=== PATIENT | female | born 1955 | race African-American/Black ===

== ENCOUNTER 2018-05-14 20:39 | Emergency (ER) | payer MEDICAID ==
[~2018-05-14] VITALS: Ht 167.6 cm; Wt 77.0 kg
[2018-05-14] MEDS ORDERED: ALBUTEROL (0.083%) 2.5MG/3ML NEB HHN STA (22:34)
[2018-05-14] MEDS ORDERED: IPRATROPIUM BROMIDE (0.02%) 0.5MG/2.5ML NEB HHN STA (22:34)
[2018-05-14] MEDS ORDERED: ACETAMINOPHEN 500MG TABLET PO ONE (22:45)
[2018-05-15 02:14] LABS: CHLORIDE 108 mEq/L (98-107)
[2018-05-15 02:20] LABS: BASOPHILS % 0.4 % (0.0-2.0); EOSINOPHILS % 2.2 % (0.0-5.0); HEMATOCRIT. 36.5 % (36.0-48.0); HEMOGLOBIN. 11.9 g/dL (12.0-16.0); LYMPHOCYTES % 38.5 % (20.0-50.0); MEAN CORPUSCULAR HEMOGLOBIN 28.6 pg (28.0-32.0); MEAN PLATELET VOLUME 7.8 fl (7.4-10.4); MONOCYTES % 9.9 % (2.0-8.0); PLATELET 263 x1000/uL (130-400); RED BLOOD CELL COUNT 4.15 mill/uL (4.2-5.4); RED CELL DISTRIBUTION WIDTH 14.1 % (11.6-14.6)
[2018-05-15] MEDS ORDERED: IOHEXOL-300 100 ML BOTTLE ONE (04:51)
[2018-05-15] MEDS ORDERED: ACETAMINOPHEN WITH CODEINE 300/30MG TABLET PO ONE (06:15)
[2018-05-15 06:45] VITALS: BP 131/87
== END 2018-05-15 07:28 | disposition home or self-care (01) ==
LOC: ER 22:08
DX: I71.9 Aortic aneurysm of unspecified site, without rupture (principal); I27.20 Pulmonary hypertension, unspecified; J45.909 Unspecified asthma, uncomplicated; F17.200 Nicotine dependence, unspecified, uncomplicated; R05 Cough; Z88.6 Allergy status to analgesic agent
CPT/HCPCS: 36415; 71045; 71260; 80053; 85025; 94640; 99285; J7611; Q9967; Z7610; 94002

== ENCOUNTER 2022-04-26 00:04 | Emergency (ER) | payer OTHER ==
[~2022-04-26] VITALS: Ht 167.6 cm; Wt 100.0 kg
[2022-04-26] MEDS ORDERED: HYDROCODONE/ACETAMINOPHEN 10/325MG TABLET PO ONE (00:30)
[2022-04-26 03:08] VITALS: BP 110/68
== END 2022-04-26 03:09 | disposition home or self-care (01) ==
LOC: ER 00:04
DX: M79.604 Pain in right leg (principal); Z76.0 Encounter for issue of repeat prescription; J45.909 Unspecified asthma, uncomplicated; Z88.6 Allergy status to analgesic agent
CPT/HCPCS: 99283

== ENCOUNTER 2025-05-24 11:39 | Inpatient (IN) | payer BC, MEDICAID ==
[~2025-05-24] VITALS: Ht 175.3 cm; Wt 90.3 kg
[2025-05-24] MEDS: METHYLPREDNISOLONE SOD SUCC 125MG/2ML (ACT-O-VIAL) IV STA (12:32)
[2025-05-24] MEDS: IPRATROPIUM BROMIDE (0.02%) 0.5MG/2.5ML NEB HHN STA (12:35)
[2025-05-24 12:36] VITALS: PULSE 57; RESP 18; O2SAT 97
[2025-05-24] MEDS: ALBUTEROL (0.083%) 2.5MG/3ML NEB HHN SCH (12:36)
[2025-05-24 12:37] LABS: BASOPHILS % 0.5 % (0.0-2.0); EOSINOPHILS % 2.1 % (0.0-5.0); HEMATOCRIT. 36.4 % (36.0-48.0); HEMOGLOBIN. 11.8 g/dL (12.0-16.0); LYMPHOCYTES % 38.6 % (20.0-50.0); MEAN CORPUSCULAR HEMOGLOBIN 26.3 pg (28.0-32.0); MEAN CORPUSCULAR HGB CONC 32.4 g/dL (31.0-37.0); MEAN PLATELET VOLUME 7.4 fl (7.4-10.4); MONOCYTES % 6.8 % (2.0-8.0); PLATELET 300 x1000/uL (130-400); RED BLOOD CELL COUNT 4.49 mill/uL (4.2-5.4); RED CELL DISTRIBUTION WIDTH 15.2 % (11.6-14.6); WHITE BLOOD COUNT 6.9 x1000/uL (4.5-11.0)
[2025-05-24] MEDS: MAGNESIUM 2 G PREMIX 50 ML IV ONE (12:40)
[2025-05-24 12:48] LABS: PROTHROMBIN TIME 10.3 sec (9.6-11.0)
[2025-05-24 13:39] LABS: CHLORIDE 109 mEq/L (98-107); POTASSIUM 3.5 mEq/L (3.5-5.1); SODIUM 145 mEq/L (136-145)
[2025-05-24 13:40] LABS: CALCIUM 9.1 mg/dL (8.7-10.4); CARBON DIOXIDE 30 mEq/L (21-32)
[2025-05-24 13:45] LABS: CREATININE 1.1 mg/dL (0.6-1.0); GLUCOSE 90 mg/dL (70-105); TROPONIN I HIGH SENSITIVITY < 4 ng/L (3.0-34); UREA NITROGEN BLOOD 15 mg/dL (9-23)
[2025-05-24 13:47] LABS: ALANINE AMINOTRANSFERASE 11 IU/L (10-49); ALBUMIN 4.2 g/dL (3.2-4.8); ASPARTATE AMINOTRANSFERASE 15 IU/L (<34); BILIRUBIN DIRECT 0.2 mg/dL (<=3.0); BILIRUBIN TOTAL 0.6 mg/dL (0.1-1.0); PROTEIN TOTAL 6.8 g/dL (6.0-8.3)
[2025-05-24 16:15] VITALS: BP 144/85; PULSE 66; RESP 18; TEMP 36.2; O2SAT 97
[2025-05-24 20:00] VITALS: BP 126/88; PULSE 70; RESP 18; TEMP 36.7; O2SAT 95
[2025-05-24] MEDS ORDERED: IPRATROPIUM/ALBUTEROL 0.5-3(2.5)MG/3ML NEB HHN PRN (21:45)
[2025-05-24] MEDS ORDERED: HYDROCODONE/ACETAMINOPHEN 5/325MG TABLET PO PRN ×2 (21:45→22:30)
[2025-05-24] MEDS ORDERED: ACETAMINOPHEN 325MG TABLET PO PRN ×2 (21:45→22:30)
[2025-05-24] MEDS ORDERED: NALOXONE HCL 0.4MG/ML VIAL IV PRN (22:00)
[2025-05-24] MEDS ORDERED: ONDANSETRON HCL 4MG/2ML INJ IV PRN (22:30)
[2025-05-24] MEDS ORDERED: DOCUSATE SODIUM 100MG CAPSULE PO PRN (22:30)
[2025-05-24] MEDS: PANTOPRAZOLE SODIUM 40 MG/VIAL IV SCH (22:31)
[2025-05-24] MEDS: DEXT 5%/0.45% NACL 1000ML 1,000 ML IV SCH (23:18)
[2025-05-25] VITALS: BP 143/91; PULSE 65; RESP 18; TEMP 36.4; O2SAT 98
[2025-05-25 00:33] LABS: CREATINE KINASE 72 IU/L (34-145)
[2025-05-25 00:34] LABS: CREATINE KINASE MB FRACTION 0.6 ng/mL (0.5-3.6)
[2025-05-25 00:35] LABS: TROPONIN I HIGH SENSITIVITY < 4 ng/L (3.0-34)
[2025-05-25 04:00] VITALS: BP 125/71; PULSE 64; RESP 18; TEMP 36.6; O2SAT 98
[2025-05-25] MEDS: LEVOFLOXACIN 500MG PREMIX 100 ML IV SCH (05:06)
[2025-05-25 07:57] LABS: BASOPHILS % 0.2 % (0.0-2.0); HEMATOCRIT. 38.5 % (36.0-48.0); HEMOGLOBIN. 12.7 g/dL (12.0-16.0); LYMPHOCYTES % 15.9 % (20.0-50.0); MEAN CORPUSCULAR HEMOGLOBIN 26.7 pg (28.0-32.0); MEAN CORPUSCULAR HGB CONC 32.9 g/dL (31.0-37.0); MEAN CORPUSCULAR VOLUME 81.2 fL (81.0-99.0); MEAN PLATELET VOLUME 8.5 fl (7.4-10.4); MONOCYTES % 5.1 % (2.0-8.0); NEUTROPHILS % 78.8 % (40.0-76.0); PLATELET 298 x1000/uL (130-400); RED BLOOD CELL COUNT 4.74 mill/uL (4.2-5.4); RED CELL DISTRIBUTION WIDTH 15.5 % (11.6-14.6); WHITE BLOOD COUNT 9.8 x1000/uL (4.5-11.0)
[2025-05-25 08:00] VITALS: BP 126/77; PULSE 63; RESP 18; TEMP 36.2; O2SAT 100
[2025-05-25 08:06] LABS: CALCIUM 9.1 mg/dL (8.7-10.4); CHLORIDE 106 mEq/L (98-107); POTASSIUM 4.4 mEq/L (3.5-5.1); SODIUM 143 mEq/L (136-145)
[2025-05-25 08:07] LABS: CARBON DIOXIDE 27 mEq/L (21-32)
[2025-05-25 08:10] LABS: CREATINE KINASE MB FRACTION 0.7 ng/mL (0.5-3.6)
[2025-05-25 08:12] LABS: CREATININE 0.7 mg/dL (0.6-1.0); GLUCOSE 116 mg/dL (70-105); TRIGLYCERIDE 57 mg/dL (0-150); TROPONIN I HIGH SENSITIVITY < 4 ng/L (3.0-34); UREA NITROGEN BLOOD 8 mg/dL (9-23)
[2025-05-25 08:13] LABS: CREATINE KINASE 78 IU/L (34-145); LDL CHOLESTEROL 88 mg/dL (5-100)
[2025-05-25 08:14] LABS: CHOLESTEROL 140 mg/dL (<200); HDL CHOLESTEROL 40 mg/dL (>65)
[2025-05-25 08:15] LABS: T4 FREE 1.15 ng/dL (0.89-1.76); THYROID STIMULATING HORMONE < 0.10 uIU/mL (0.55-4.78)
[2025-05-25] MEDS: IPRATROPIUM/ALBUTEROL 0.5-3(2.5)MG/3ML NEB HHN SCH (08:58)
[2025-05-25 08:59] VITALS: PULSE 77; RESP 18; O2SAT 96
[2025-05-25 08:59] LABS: CLARITY URINE CLEAR (CLEAR); COLOR URINE YELLOW (YELLOW); GLUCOSE URINE TRACE (NEGATIVE); KETONES URINE NEGATIVE (NEGATIVE); LEUKOCYTE ESTERASE URINE NEGATIVE (NEGATIVE); NITRITE URINE NEGATIVE (NEGATIVE); OCCULT BLOOD URINE NEGATIVE (NEGATIVE); PROTEIN URINE NEGATIVE (NEGATIVE); SPECIFIC GRAVITY URINE 1.008 (1.005-1.030)
[2025-05-25 09:13] LABS: INFLUENZA TYPE A Presumptive Negative (Pres. Neg.); INFLUENZA TYPE B Presumptive Negative (Pres. Neg.)
[2025-05-25 09:14] LABS: RESPIRATORY SYNCYTIAL VIRUS Not Detected (Not Detectd)
[2025-05-25 10:30] LABS: SQUAMOUS EPITHELIAL CELL URINE 1+ /lpf (RARE/1+)
[2025-05-25 10:31] LABS: BACTERIA URINE TRACE; RBC URINE 0-2 /hpf (0-2); WBC URINE NONE SEEN /hpf (0-2)
[2025-05-25 11:22] LABS: *AMPHETAMINES SCREEN URINE NEGATIVE (NEGATIVE); *BARBITURATES SCREEN URINE NEGATIVE (NEGATIVE); *BENZODIAZEPINES SCREEN URINE NEGATIVE (NEGATIVE); *COCAINE SCREEN URINE NEGATIVE (NEGATIVE); CANNABINOID URINE SCREEN NEGATIVE (NEGATIVE); ECSTASY MDMA SCREEN URINE NEGATIVE (NEGATIVE); METHADONE URINE SCREEN NEGATIVE (NEGATIVE); OPIATES URINE SCREEN PRESUMPTIVE POSITIVE (NEGATIVE); PHENCYCLIDINE URINE SCREEN PRESUMTIVE POSITIVE (NEGATIVE)
[2025-05-25] MEDS ORDERED: LEVOFLOXACIN 500MG PREMIX 100 ML IV SCH (21:00)
== END 2025-05-25 10:00 | disposition left against medical advice (07) | DRG 202 ==
LOC: ER 11:39 → 5WST 14:29 → EDBEDREQTM 14:31 → EDBEDREQ 14:31
PROVIDERS: ADMIT Internal Medicine; ATTEND Internal Medicine
DX: J45.901 Unspecified asthma with (acute) exacerbation (principal); J44.1 Chronic obstructive pulmonary disease with (acute) exacerbation; R04.2 Hemoptysis; Z53.29 Procedure and treatment not carried out because of patient's decision for other reasons; Z55.6 Problems related to health literacy; Z88.6 Allergy status to analgesic agent
CPT/HCPCS: 36415; 71045; 80048; 80061; 80076; 80305; 81003; 82550; 82553; 84439; 84443; 84481; 84484; 85025; 85379; 86850; 86900; 87420; 87426; 87804; 93005; 94070; 94640; 94664; 98960; 99291; A4606; J1956; J2470; J2919; J3475